=== PATIENT | female | born 1980 | race Caucasian/White ===

== ENCOUNTER → 2018-07-24 | Outpatient (CLI) | payer BC ==
[~2018-07-24] MED LIST: FIORICET PO; GABAPENTIN400 MG PO; KLONOPIN2 MG PO; LORAZEPAM INJ 2 MG/ML VIAL ONE; PRESTIQ PO; PROMETHAZINE HC25 M1 PO
--- NOTE | 2018-07-24 13:26 | Diagnostic Imaging Report ---
EXAMINATION: MRI of the brain without contrast . HISTORY: Headache, left-sided weakness, bilateral upper and lower extremities weakness for the last 3 months. COMPARISON: None available TECHNIQUE: Axial DWI, T1, T2, T2 FLAIR, GRE, coronal T2 FLAIR and sagittal T2. FINDINGS: T2 lesions: Approximately 5-10 T2 lesions located in the, callosal septal interface, mckeon radiata, centrum semiovale and juxtacortical white matter. Largest lesion measures 9 mm in the right frontal centrum semiovale. No discrete infratentorial lesions. T1 lesions: None Corpus callosum volume: Normal. Brain volume: Normal for age. Other: No mass, hydrocephalus, hemorrhage, acute or chronic infarcts IMPRESSION: Approximately 5-10 supratentorial white matter T2 lesions, in the presence of cervical spinal cord lesions, the findings are worrisome for demyelinating disease such as multiple sclerosis. Comparison to prior studies if available is recommended, for future follow-ups brain MRI without and with contrast is advised. Signed by: Dr. Mally Fletcher M.D. on 07/24/2018 1:23 PM
--- NOTE | 2018-07-24 13:42 | Diagnostic Imaging Report ---
EXAMINATION: MRI of the lumbar spine without contrast HISTORY: Left-sided weakness, bilateral upper and lower extremities weakness for the last 3 months. COMPARISON: None. TECHNIQUE: Sagittal T1, T2, STIR; axial T2 and proton density. FINDINGS: It is assumed that there are 5 lumbar vertebrae. Curvature/Alignment: Normal lordosis. Vertebrae: No evidence of recent fracture, infection, or neoplasm. Distal thoracic spinal cord: Subtle central spinal cord T2 lesion at the level of T12 measures approximately 1.4 cm length, questionable additional lesion at T10-T11. No cord expansion. Conus: Normal, terminating at L1 Cauda equina: Unremarkable. Lower thoracic: Unremarkable. Paraspinal soft tissues: Unremarkable. Degenerative changes: None, no disc herniations, no spinal canal or foraminal stenosis. IMPRESSION: Distal thoracic spinal cord T2 lesion at the level of T12, in combination with cervical spinal cord lesions seen on cervical spine MRI performed on the same day, suggest demyelinating disease such as multiple sclerosis in the appropriate clinical setting. Signed by: Dr. Mally Fletcher M.D. on 07/24/2018 1:39 PM
--- NOTE | 2018-07-24 13:55 | Diagnostic Imaging Report ---
EXAMINATION: MRI of the cervical spine without contrast. HISTORY: Left-sided weakness, bilateral upper and lower extremities weakness for the last 3 months COMPARISON: None available TECHNIQUE: Sagittal T1, T2, STIR; axial T1, and T2. FINDINGS: Spinal Cord: Spinal cord size: Normal T1 lesions: None T2 lesions: Scattered mostly small cervical and upper thoracic spinal cord T2 lesions as follows: Cervico-medullary junction: Questionable ventral cord lesion. Base of the dens: Tiny dorsal cord lesion. C2: Right half of the cord largest lesion measuring about 1.4 cm length. C3: Small right posterolateral cord . C4: A small ventral cord. C5: Small right ventral cord lesion. C5-C6: Dorsal cord. C6: Right lateral and left posterolateral cord. C6-C7: Tiny left lateral cord. T1: Questionable dorsal cord. T2-T3: Questionable central/dorsal cord lesion. Others: Vertebrae: Normal alignment, height, signal intensity. Discs: No significant degenerative changes, no canal or foraminal stenosis. Craniocervical junction: Normal. IMPRESSION: Multiple cervical and upper thoracic spinal cord T2 lesions, worrisome for demyelinating disease such as multiple sclerosis. Signed by: Dr. Mally Fletcher M.D. on 07/24/2018 1:52 PM
== END ==
LOC: MRI 08:17
PROVIDERS: ATTEND Specialist
DX: R51 Headache (principal); M50.90 Cervical disc disorder, unspecified, unspecified cervical region; M51.9 Unspecified thoracic, thoracolumbar and lumbosacral intervertebral disc disorder
CPT/HCPCS: 70551; 72141; 72148; 81025; J2060